=== PATIENT | male | born 1990 | race African-American/Black ===

== ENCOUNTER 2019-06-07 12:14 | Inpatient (IN) | payer MEDICAID, OTHER ==
[~2019-06-07] VITALS: Ht 182.9 cm; Wt 93.7 kg
[~2019-06-07 12:14] MED LIST: ALPR2TAB2; CARI250T; DIAZ10TA; NOR10T; PRO125RS; QUET100T38
[2019-06-07 13:03] LABS: Hematocrit 35.5 % (41.0-53.0); Hemoglobin 11.4 g/dL (13.5-17.5); Mean Corpuscular Hemoglobin 27.1 pg (28.0-32.0); Mean Corpuscular Hgb Conc. 32.2 g/dL (32.0-36.0); Mean Corpuscular Volume 84.1 fL (80.0-100.0); Platelet Count (auto) 448 10^3/uL (140-450); Red Blood Cells 4.22 10^6/uL (4.5-5.90); Red Cell Distribution Width 14.4 % (11.8-14.3); White Blood Cell 27.4 10^3/uL (4.4-10.8)
[2019-06-07 13:06] LABS: Basophils % (manual) 0 (0.0-2.0); Blast Cells 0; Eosinophils % (manual) 0 (0-7); Metamyelocytes % 0; Myelocytes % 0; Promyelocytes % 0; Reactive Lymphocytes 0
[2019-06-07 13:16] LABS: Calcium 8.9 mg/dL (8.5-10.1); Potassium 4.5 mmol/L (3.5-5.1)
[2019-06-07] MEDS ORDERED: ACETAMINOPHEN 325 MG TAB PO ONE ×2 (13:19→14:15)
[2019-06-07 13:21] LABS: Bilirubin, Total 0.5 mg/dL (0.2-1.0); Total Protein 8.2 g/dL (6.4-8.2)
[2019-06-07 13:22] LABS: Albumin 2.3 g/dL (3.4-5.0)
[2019-06-07 13:25] LABS: BUN/Creatinine Ratio 13.3
[2019-06-07 14:33] LABS: Band Neutrophils % (manual) 1
[2019-06-07 14:34] LABS: Lymphocytes % (manual) 10 (10.0-50.0); Monocytes % (manual) 3 (0-12)
[2019-06-07] MEDS ORDERED: ZINC SULFATE 220mg CAP or TAB PO ONE (15:00)
[2019-06-07] MEDS ORDERED: cefTRIAXone 1GM/50ML D5W 50 ML IV ONE (15:00)
[2019-06-07] MEDS ORDERED: ASCORBIC ACID 500 MG TAB PO ONE (15:00)
[2019-06-07] MEDS ORDERED: AZITHROMYCIN 500MG/ 250ML 250 ML IV ONE (15:00)
[2019-06-07] MEDS ORDERED: ACETAMINOPHEN 500 MG TAB PO PRN (17:15)
[2019-06-07] MEDS ORDERED: NITROGLYCERIN 0.4 MG SL TAB SL PRN (17:15)
[2019-06-07] MEDS ORDERED: MORPHINE SULF INJ 2 MG/ML SYRINGE 1ML IV PRN (17:15)
[2019-06-07 19:56] LABS: Basophils # (auto) 0.1 10 ^3/uL (0-0.2); Eosinophils # (auto) 0 10 ^3/uL (0-0.8); Eosinophils % (auto) 0.1 % (0.0-7.0); Lymphocytes # (auto) 1.5 10 ^3/uL (0.4-5.4)
[2019-06-07 19:58] LABS: Basophils % (auto) 0.3 % (0.0-2.0); Hematocrit 34.9 % (41.0-53.0); Hemoglobin 11.6 g/dL (13.5-17.5); Lymphocytes % (auto) 5.2 % (10.0-50.0); Mean Corpuscular Hemoglobin 27.4 pg (28.0-32.0); Mean Corpuscular Hgb Conc. 33.3 g/dL (32.0-36.0); Mean Corpuscular Volume 82.3 fL (80.0-100.0); Monocytes # (auto) 1.9 10 ^3/uL (0-1.3); Monocytes % (auto) 6.3 % (0.0-12.0); Neutrophils % (auto) 88.1 % (37.0-80.0); Platelet Count (auto) 483 10^3/uL (140-450); Red Blood Cells 4.24 10^6/uL (4.5-5.90); Red Cell Distribution Width 14.2 % (11.8-14.3); White Blood Cell 29.5 10^3/uL (4.4-10.8)
[2019-06-07 20:03] LABS: Albumin 2.2 g/dL (3.4-5.0); BUN/Creatinine Ratio 11.8; Calcium 8.6 mg/dL (8.5-10.1); Magnesium 2.1 mg/dL (1.6-2.6); Potassium 4.2 mmol/L (3.5-5.1)
[2019-06-07 20:06] LABS: Bilirubin, Total 0.5 mg/dL (0.2-1.0); Total Protein 7.6 g/dL (6.4-8.2)
[2019-06-07 22:00] VITALS: BP 137/77
[2019-06-08 05:00] VITALS: BP 112/66
[2019-06-08 06:16] LABS: Alcohol, Urine < 3.0 mg/dL (0-5); Amphetamine Screen, Urine POSITIVE (NEGATIVE); Barbiturate Scree,Urine NEGATIVE (NEGATIVE); Benzodiazephine Screen, Urine NEGATIVE (NEGATIVE); Cannabinoid Screen, Urine POSITIVE (NEGATIVE); Cocaine Screen, Urine NEGATIVE (NEGATIVE); Opiate Scree,Urine NEGATIVE (NEGATIVE); Phencyclidine Screen, Urine NEGATIVE (NEGATIVE)
[2019-06-08 06:19] LABS: Urine Bacteria NONE SEEN /hpf (None Seen); Urine Blood Negative /uL (Negative); Urine Specific Gravity 1.016 (1.001-1.035); Urine WBC 1 /hpf (0 - 3)
[2019-06-08 09:00] VITALS: BP 151/85
[2019-06-08] MEDS ORDERED: cefTRIAXone 1GM/50ML D5W 50 ML IV SCH (09:00)
[2019-06-08] MEDS: ZINC SULFATE 220mg CAP or TAB PO SCH (09:19)
[2019-06-08] MEDS: ASCORBIC ACID 500 MG TAB PO SCH (09:20)
[2019-06-08] MEDS: CHOLECALCIFEROL (VITD3) 1,000IU=25mCg TAB PO SCH (09:20)
[2019-06-08] MEDS: ENOXAPARIN SOD 40 MG/0.4 ML SYRINGE SC SCH (09:21)
[2019-06-08] MEDS ORDERED: PIPERACILLIN-TAZO 4.5GM 100 ML IV ONE (09:45)
[2019-06-08] MEDS ORDERED: AZITHROMYCIN 500MG/D5WorNS 250ml IV SCH (10:00)
[2019-06-08] MEDS: LINEZOLID 600MG/300ML 300 ML IV SCH ×2 (10:07→21:52)
[2019-06-08] MEDS: AZITHROMYCIN 250 MG TAB PO SCH (10:08)
[2019-06-08 13:00] VITALS: BP 130/72
[2019-06-08] MEDS: PIPERACILLIN-TAZO 4.5GM 100 ML IV SCH ×2 (13:59→21:52)
[2019-06-08 17:00] VITALS: BP 136/84
[2019-06-08 20:00] VITALS: BP 155/88
[2019-06-09] MEDS: HYDROcodone-ACET 10/325MG TAB PO PRN ×3 (02:55→21:08)
[2019-06-09] MEDS: PIPERACILLIN-TAZO 4.5GM 100 ML IV SCH ×3 (05:37→23:30)
[2019-06-09 09:00] VITALS: BP 125/76
[2019-06-09 09:50] LABS: Basophils # (auto) 0 10 ^3/uL (0-0.2); Eosinophils # (auto) 0.2 10 ^3/uL (0-0.8); Eosinophils % (auto) 1.8 % (0.0-7.0); Mean Corpuscular Volume 82.6 fL (80.0-100.0); Monocytes # (auto) 1.2 10 ^3/uL (0-1.3); Monocytes % (auto) 10.3 % (0.0-12.0)
[2019-06-09 09:56] LABS: Basophils % (auto) 0.4 % (0.0-2.0); Hematocrit 33.9 % (41.0-53.0); Hemoglobin 10.9 g/dL (13.5-17.5); Lymphocytes % (auto) 17.2 % (10.0-50.0); Mean Corpuscular Hemoglobin 26.5 pg (28.0-32.0); Mean Corpuscular Hgb Conc. 32.1 g/dL (32.0-36.0); Neutrophils # (auto) 8.2 10 ^3/uL (1.6-8.6); Neutrophils % (auto) 70.3 % (37.0-80.0); Platelet Count (auto) 585 10^3/uL (140-450); Red Blood Cells 4.11 10^6/uL (4.5-5.90); Red Cell Distribution Width 14.6 % (11.8-14.3); White Blood Cell 11.7 10^3/uL (4.4-10.8)
[2019-06-09 10:03] LABS: Calcium 8.5 mg/dL (8.5-10.1); Potassium 4.1 mmol/L (3.5-5.1)
[2019-06-09 10:04] LABS: Hepatitis B Surface Antibody Positive
[2019-06-09 10:05] LABS: BUN/Creatinine Ratio 12.3; Bilirubin, Total 0.3 mg/dL (0.2-1.0); Total Protein 7.5 g/dL (6.4-8.2)
[2019-06-09] MEDS: LINEZOLID 600MG/300ML 300 ML IV SCH ×2 (10:08→21:04)
[2019-06-09] MEDS: ZINC SULFATE 220mg CAP or TAB PO SCH (10:09)
[2019-06-09] MEDS: CHOLECALCIFEROL (VITD3) 1,000IU=25mCg TAB PO SCH (10:12)
[2019-06-09] MEDS: ASCORBIC ACID 500 MG TAB PO SCH (10:12)
[2019-06-09] MEDS: AZITHROMYCIN 250 MG TAB PO SCH (10:13)
[2019-06-09] MEDS: ENOXAPARIN SOD 40 MG/0.4 ML SYRINGE SC SCH (10:13)
[2019-06-09 10:14] LABS: CRP High Sensitivity 13.4 mg/dL (< 0.3)
[2019-06-09 10:29] LABS: Hepatitis A Total Antibody Positive
[2019-06-09 11:33] LABS: Hepatitis B Core Total AB Negative; Hepatitis B Surface Antigen Negative (Negative); Hepatitis C Antibody Negative (Negative)
[2019-06-09 13:00] VITALS: BP 132/83
[2019-06-09 17:00] VITALS: BP 130/77
[2019-06-09 21:00] VITALS: BP_SYST 124; BP_SYST 132; BP_DIAS 77; BP_DIAS 88
[2019-06-10 05:00] VITALS: BP 116/62
[2019-06-10] MEDS: PIPERACILLIN-TAZO 4.5GM 100 ML IV SCH ×3 (05:27→23:40)
[2019-06-10 09:00] VITALS: BP 128/80
[2019-06-10] MEDS: LINEZOLID 600MG/300ML 300 ML IV SCH ×2 (09:16→21:22)
[2019-06-10] MEDS: ASCORBIC ACID 500 MG TAB PO SCH (09:17)
[2019-06-10] MEDS: ZINC SULFATE 220mg CAP or TAB PO SCH (09:17)
[2019-06-10] MEDS: CHOLECALCIFEROL (VITD3) 1,000IU=25mCg TAB PO SCH (09:18)
[2019-06-10] MEDS: AZITHROMYCIN 250 MG TAB PO SCH (09:18)
[2019-06-10] MEDS: ENOXAPARIN SOD 40 MG/0.4 ML SYRINGE SC SCH (09:19)
[2019-06-10 13:00] VITALS: BP 110/72
[2019-06-10 17:00] VITALS: BP 119/70
[2019-06-10 17:36] LABS: Hemoglobin 11.5 g/dL (13.5-17.5); Nucleated Red Blood Cells % 0.1 %; Red Blood Cells 4.18 10^6/uL (4.5-5.90); White Blood Cell 6.8 10^3/uL (4.4-10.8)
[2019-06-10 17:38] LABS: Basophils # (auto) 0.1 10 ^3/uL (0-0.2); Basophils % (auto) 1.2 % (0.0-2.0); Eosinophils # (auto) 0.2 10 ^3/uL (0-0.8); Eosinophils % (auto) 2.7 % (0.0-7.0); Hematocrit 34.9 % (41.0-53.0); Lymphocytes # (auto) 2.1 10 ^3/uL (0.4-5.4); Lymphocytes % (auto) 30.7 % (10.0-50.0); Mean Corpuscular Hemoglobin 27.5 pg (28.0-32.0); Mean Corpuscular Hgb Conc. 32.9 g/dL (32.0-36.0); Mean Corpuscular Volume 83.5 fL (80.0-100.0); Monocytes # (auto) 0.8 10 ^3/uL (0-1.3); Monocytes % (auto) 11.1 % (0.0-12.0); Neutrophils # (auto) 3.7 10 ^3/uL (1.6-8.6); Neutrophils % (auto) 54.3 % (37.0-80.0); Platelet Count (auto) 588 10^3/uL (140-450); Red Cell Distribution Width 14.3 % (11.8-14.3)
[2019-06-10 17:53] LABS: Albumin 2.1 g/dL (3.4-5.0); BUN/Creatinine Ratio 9.5; Calcium 8.6 mg/dL (8.5-10.1); Magnesium 2.1 mg/dL (1.6-2.6)
[2019-06-10 17:56] LABS: Bilirubin, Total 0.2 mg/dL (0.2-1.0); Total Protein 7.5 g/dL (6.4-8.2)
[2019-06-10 21:45] VITALS: BP 128/72
[2019-06-11] MEDS: PIPERACILLIN-TAZO 4.5GM 100 ML IV SCH (05:28)
[2019-06-11 05:31] VITALS: BP 131/75
[2019-06-11 08:30] VITALS: BP 110/76
[2019-06-11 08:52] LABS: White Blood Cell 5.7 10^3/uL (4.4-10.8)
[2019-06-11 08:54] LABS: Hematocrit 34.6 % (41.0-53.0); Hemoglobin 11.5 g/dL (13.5-17.5); Mean Corpuscular Hemoglobin 27.7 pg (28.0-32.0); Mean Corpuscular Hgb Conc. 33.2 g/dL (32.0-36.0); Mean Corpuscular Volume 83.5 fL (80.0-100.0); Platelet Count (auto) 592 10^3/uL (140-450); Red Blood Cells 4.14 10^6/uL (4.5-5.90); Red Cell Distribution Width 14.2 % (11.8-14.3)
[2019-06-11 08:57] LABS: Band Neutrophils % (manual) 0; Basophils % (manual) 0 (0.0-2.0); Blast Cells 0; Myelocytes % 0; Promyelocytes % 0
[2019-06-11 09:05] LABS: Albumin 2.2 g/dL (3.4-5.0); Calcium 8.5 mg/dL (8.5-10.1); Magnesium 2.3 mg/dL (1.6-2.6)
[2019-06-11 09:11] LABS: BUN/Creatinine Ratio 10.6; Bilirubin, Total 0.2 mg/dL (0.2-1.0); Total Protein 7.6 g/dL (6.4-8.2)
[2019-06-11 09:17] LABS: Eosinophils % (manual) 1 (0-7); Lymphocytes % (manual) 36 (10.0-50.0); Metamyelocytes % 1; Monocytes % (manual) 8 (0-12); Reactive Lymphocytes 1
[2019-06-11] MEDS: ENOXAPARIN SOD 40 MG/0.4 ML SYRINGE SC SCH (10:00)
[2019-06-11] MEDS: ZINC SULFATE 220mg CAP or TAB PO SCH (10:15)
[2019-06-11] MEDS: CHOLECALCIFEROL (VITD3) 1,000IU=25mCg TAB PO SCH (10:15)
[2019-06-11] MEDS: ASCORBIC ACID 500 MG TAB PO SCH (10:16)
[2019-06-11] MEDS: AZITHROMYCIN 250 MG TAB PO SCH (10:16)
[2019-06-11] MEDS: LINEZOLID 600MG/300ML 300 ML IV SCH (10:17)
[2019-06-11 11:41] VITALS: BP 110/74
[2019-06-11 12:21] VITALS: BP 110/76
== END 2019-06-11 13:34 | disposition home or self-care (01) | DRG 720 ==
LOC: EDUNIT# 12:14 → ER 12:14 → TELE-EAST 12:15 → TELE-CENTR 06-09 23:00
PROVIDERS: ADMIT Nurse Practitioner Acute Care; ATTEND Internal Medicine
DX: A41.9 Sepsis, unspecified organism (principal); E43 Unspecified severe protein-calorie malnutrition; J18.9 Pneumonia, unspecified organism; F19.20 Other psychoactive substance dependence, uncomplicated; F17.210 Nicotine dependence, cigarettes, uncomplicated; J45.909 Unspecified asthma, uncomplicated; G40.909 Epilepsy, unspecified, not intractable, without status epilepticus; Z79.899 Other long term (current) drug therapy; Z03.818 Encounter for observation for suspected exposure to other biological agents ruled out; Z68.24 Body mass index [BMI] 24.0-24.9, adult
CPT/HCPCS: 36415; 71045; 71046; 80053; 80164; 80307; 81001; 82728; 83036; 83605; 83615; 83735; 84443; 84550; 85007; 85025; 85027; 85379; 85652; 86141; 86431; 86703; 86704; 86706; 86708; 86803; 87040; 87070; 87077; 87186; 87205; 87340; 87804; 87880; 96365; 96366; 96368; G0378; J0696; J2543

== ENCOUNTER 2019-08-25 02:46 | Emergency (ER) | payer MEDICAID ==
[~2019-08-25] VITALS: Ht 182.9 cm; Wt 81.6 kg
[2019-08-25 03:02] VITALS: BP 140/85
== END 2019-08-25 04:08 | disposition left against medical advice (07) ==
LOC: ER 02:50
DX: R50.9 Fever, unspecified (principal); Z53.21 Procedure and treatment not carried out due to patient leaving prior to being seen by health care provider

== ENCOUNTER 2021-01-28 13:10 | Emergency (ER) | payer MEDICAID ==
[~2021-01-28] VITALS: Ht 182.9 cm; Wt 112.5 kg
[2021-01-28 13:44] LABS: Urine WBC None Seen /hpf (0 - 3)
[2021-01-28 14:07] LABS: Urine Bacteria NONE SEEN /hpf (None Seen); Urine Blood Negative /uL (Negative); Urine Mucus FEW (None Seen); Urine Specific Gravity 1.024 (1.001-1.035)
[2021-01-28 14:16] LABS: Basophils # (auto) 0 10 ^3/uL (0-0.2); Basophils % (auto) 0.2 % (0.0-2.0); Eosinophils # (auto) 0 10 ^3/uL (0-0.8); Eosinophils % (auto) 0.1 % (0.0-7.0); Mean Corpuscular Volume 82.3 fL (80.0-100.0); Monocytes # (auto) 0.9 10 ^3/uL (0-1.3); Nucleated Red Blood Cells % 0.2 %
[2021-01-28 14:17] LABS: Hematocrit 36.9 % (41.0-53.0); Hemoglobin 12.3 g/dL (13.5-17.5); Lymphocytes # (auto) 1.4 10 ^3/uL (0.4-5.4); Lymphocytes % (auto) 25.6 % (10.0-50.0); Mean Corpuscular Hemoglobin 27.4 pg (28.0-32.0); Mean Corpuscular Hgb Conc. 33.2 g/dL (32.0-36.0); Monocytes % (auto) 17.1 % (0.0-12.0); Neutrophils # (auto) 3.1 10 ^3/uL (1.6-8.6); Red Blood Cells 4.48 10^6/uL (4.5-5.90); Red Cell Distribution Width 13.8 % (11.8-14.3); White Blood Cell 5.4 10^3/uL (4.4-10.8)
[2021-01-28 14:20] LABS: Amphetamine Screen, Urine NEGATIVE (NEGATIVE); Barbiturate Scree,Urine NEGATIVE (NEGATIVE); Benzodiazephine Screen, Urine NEGATIVE (NEGATIVE); Cannabinoid Screen, Urine POSITIVE (NEGATIVE); Cocaine Screen, Urine NEGATIVE (NEGATIVE); Opiate Scree,Urine NEGATIVE (NEGATIVE); Phencyclidine Screen, Urine NEGATIVE (NEGATIVE)
[2021-01-28 14:37] LABS: Calcium 9.3 mg/dL (8.5-10.1); Potassium 3.4 mmol/L (3.5-5.1); Salicylate < 1.7 mg/dL (2.8-20.0)
[2021-01-28 14:49] LABS: Bilirubin, Total 0.2 mg/dL (0.2-1.0); Total Protein 8.2 g/dL (6.4-8.2)
[2021-01-28 14:54] LABS: Acetaminophen < 2.0 ug/mL (10-30)
[2021-01-28] MEDS ORDERED: diphenhdrAMINE HCL 25 MG CAP PO ONE (17:30)
[2021-01-28] MEDS ORDERED: OLANZapine 5 MG TAB PO ONE (17:30)
[2021-01-28] MEDS ORDERED: diphenhdrAMINE HCL 50 MG/1 ML VL ONE (18:41)
[2021-01-28] MEDS ORDERED: HALOPERIDOL LACTATE 5 MG/ML INJ VIAL ONE (18:41)
[2021-01-28] MEDS ORDERED: LORazepam 2MG/ML-1ML VIAL ONE (18:42)
[2021-01-28] MEDS ORDERED: LORazepam 2MG/ML-1ML VIAL IM ONE (18:45)
[2021-01-28] MEDS ORDERED: diphenhdrAMINE HCL 50 MG/1 ML VL IM ONE (18:45)
[2021-01-28] MEDS ORDERED: HALOPERIDOL LACTATE 5 MG/ML INJ VIAL IM ONE (18:45)
[2021-01-30 07:25] VITALS: BP 144/89
== END 2021-01-30 09:37 | disposition home or self-care (01) ==
LOC: ER 13:10
DX: F29 Unspecified psychosis not due to a substance or known physiological condition (principal); F32.9 Major depressive disorder, single episode, unspecified; R07.89 Other chest pain; F17.210 Nicotine dependence, cigarettes, uncomplicated
CPT/HCPCS: 36415; 80053; 80307; 80320; 80329; 81001; 85025; 93005; 96372; 99285; J1200; J1630; J2060

== ENCOUNTER 2022-01-23 21:36 | Emergency (ER) | payer MEDICAID ==
[~2022-01-23] VITALS: Ht 182.9 cm; Wt 91.0 kg
[2022-01-23 23:28] VITALS: BP 133/90
[2022-01-24] MEDS ORDERED: IBUP800T27 PO (00:35)
[2022-01-24] MEDS ORDERED: CEPH-510 PO (01:03)
== END 2022-01-24 01:36 | disposition home or self-care (01) ==
LOC: ER 21:39
DX: S83.92XA Sprain of unspecified site of left knee, initial encounter (principal); F17.210 Nicotine dependence, cigarettes, uncomplicated; F12.10 Cannabis abuse, uncomplicated; W22.8XXA Striking against or struck by other objects, initial encounter; Y93.89 Activity, other specified; Y92.89 Other specified places as the place of occurrence of the external cause; Y99.8 Other external cause status
CPT/HCPCS: 29505; 73560

== ENCOUNTER 2023-01-26 23:25 | Inpatient (IN) | payer MEDICAID, OTHER ==
[~2023-01-26] VITALS: Ht 182.9 cm; Wt 94.6 kg
[~2023-01-26 23:25] MED LIST changes: +CEPH-510 PO; -DIAZ10TA; +DIAZ10TA66; +IBUP-1456 PO
[2023-01-27] VITALS: PULSE 94; RESP 32; O2SAT 83
[2023-01-27] MEDS ORDERED: NALOXONE HCL 1MG/ML 2ML SYRINGE IV ONE
[2023-01-27] MEDS ORDERED: LORazepam 2MG/ML-1ML VIAL IV ONE ×2 (00:15→00:30)
[2023-01-27] MEDS ORDERED: diphenhdrAMINE HCL 50 MG/1 ML VL IV ONE (00:30)
[2023-01-27] MEDS ORDERED: HALOPERIDOL LACTATE 5 MG/ML INJ VIAL IM ONE ×2 (00:30)
[2023-01-27 00:47] LABS: Basophils # (auto) 0.1 10 ^3/uL (0-0.2); Basophils % (auto) 0.4 % (0.0-2.0); Eosinophils # (auto) 0 10 ^3/uL (0-0.8); Eosinophils % (auto) 0.1 % (0.0-7.0); Hematocrit 45.2 % (41.0-53.0); Hemoglobin 14.5 g/dL (13.5-17.5); Lymphocytes # (auto) 1.9 10 ^3/uL (0.4-5.4); Lymphocytes % (auto) 12.4 % (10.0-50.0); Mean Corpuscular Hemoglobin 27.1 pg (28.0-32.0); Mean Corpuscular Volume 84.8 fL (80.0-100.0); Neutrophils # (auto) 11.9 10 ^3/uL (1.6-8.6); Neutrophils % (auto) 80.1 % (37.0-80.0); Nucleated Red Blood Cells % 0.3 %; Red Blood Cells 5.33 10^6/uL (4.5-5.90); Red Cell Distribution Width 14.9 % (11.8-14.3); White Blood Cell 14.9 10^3/uL (4.4-10.8)
[2023-01-27 01:00] LABS: INR 1.02 (0.9-1.15); Partial Thromboplastin Time 27.1 SEC (24.5-34.5); Prothrombin Time 10.7 sec (9.3-11.8)
[2023-01-27 01:01] LABS: Alanine Aminotransferase 37 U/L (7-40); Alkaline Phosphatase 54 U/L (46-116); Calcium 9.1 mg/dL (8.7-10.4); Carbon Dioxide 28 mmol/L (20-30); Chloride 103 mmol/L (98-107); Glucose 91 mg/dL (74-106)
[2023-01-27 01:02] LABS: Albumin 4.1 g/dL (3.2-4.8); Anion Gap 5 (5-15); Aspartate Aminotransferase 54 U/L (13-40); BUN/Creatinine Ratio 26.5 (10.0-20.0); Bilirubin, Total 0.5 mg/dL (0.2-1.0); Blood Urea Nitrogen 26 mg/dL (9-23); Potassium 4.5 mmol/L (3.5-5.1); Sodium 136 mmol/L (136-145); Total Protein 6.4 g/dL (5.7-8.2)
[2023-01-27 02:28] LABS: Amphetamine Screen, Urine Pos (NEGATIVE); Barbiturate Scree,Urine Neg (NEGATIVE); Benzodiazephine Screen, Urine Neg (NEGATIVE); Cocaine Screen, Urine Neg (NEGATIVE); Opiate Scree,Urine Neg (NEGATIVE)
[2023-01-27 02:29] LABS: Cannabinoid Screen, Urine Pos (NEGATIVE); Phencyclidine Screen, Urine Neg (NEGATIVE)
[2023-01-27 03:12] LABS: Urine Bacteria NONE SEEN /hpf (None Seen); Urine Blood Negative /uL (Negative); Urine Clarity Clear (Clear); Urine Color Yellow (Yellow); Urine Protein, UAD Negative (Negative); Urine Urobilinogen Normal (Negative); Urine WBC <1 /hpf (0 - 3)
[2023-01-27] MEDS ORDERED: VANCOMYCIN PER PHARMACY 0 MG IV SCH ×2 (04:15→09:00)
[2023-01-27] MEDS ORDERED: PIPERACILLIN-TAZOB 3.375GM 100 ML IV ONE (04:15)
[2023-01-27] MEDS ORDERED: IPRATROPIUM BROM 0.5 MG/2.5ML INH SOL NEB ONE (04:15)
[2023-01-27] MEDS ORDERED: ALBUTEROL MEDNEB 2.5 mg/3ml NEB NEB ONE (04:15)
[2023-01-27 04:47] LABS: Base Excess 2.5 mmol/L (-2.0-2.0)
[2023-01-27] MEDS ORDERED: VANCOMYCIN 1GM/250ML 250 ML IV SCH (05:00)
[2023-01-27] MEDS ORDERED: ACETAMINOPHEN 650 MG RECT SUPP PR ONE (05:00)
[2023-01-27 05:31] LABS: COVID19 ANTIGEN SOFIA FIA NEGATIVE (NEGATIVE)
[2023-01-27 05:32] LABS: Rapid Influenza A Negative (Negative); Rapid Influenza B Negative (Negative)
[2023-01-27 07:25] VITALS: RESP 29; O2SAT 100
[2023-01-27] MEDS ORDERED: SODIUM CHLORIDE 0.9% 1,000 ML IV SCH (09:00)
[2023-01-27] MEDS ORDERED: ALBUTEROL MEDNEB 2.5 mg/3ml NEB NEB PRN (09:00)
[2023-01-27] MEDS ORDERED: MORPHINE SULFATE INJ 2 MG/ml SYRG IV PRN (09:00)
[2023-01-27] MEDS ORDERED: NITROGLYCERIN 0.4 MG SL TAB SL PRN (09:00)
[2023-01-27] MEDS ORDERED: SODIUM CHLORIDE 0.9% 1,000 ML IV ONE (09:00)
[2023-01-27] MEDS ORDERED: ONDANSETRON HCL 4 MG/2 ML VIAL IV PRN (09:00)
[2023-01-27] MEDS ORDERED: ACETAMINOPHEN 325 MG TAB PO PRN (09:00)
[2023-01-27] MEDS ORDERED: PANTOPRAZOLE 40 MG/10 ML VIAL INJ IV ONE (09:30)
[2023-01-27] MEDS ORDERED: FUROSEMIDE 40 MG/4 ML VIAL IV ONE (09:45)
[2023-01-27] MEDS: ALBUTEROL MEDNEB 2.5 mg/3ml NEB NEB SCH ×2 (10:00→14:00)
[2023-01-27] MEDS ORDERED: IPRATROPIUM BROM 0.5 MG/2.5ML INH SOL NEB SCH (10:00)
[2023-01-27] MEDS: ENOXAPARIN SOD 40 MG/0.4 ML SYRINGE SC SCH (10:14)
[2023-01-27] MEDS: QUEtiapine FUMARATE 100 MG TAB PO SCH (10:18)
[2023-01-27 12:00] VITALS: BP 129/78; PULSE 118; RESP 20; O2SAT 96
[2023-01-27] MEDS ORDERED: PIPERACILLIN-TAZOB 3.375GM 100 ML IV SCH (12:00)
[2023-01-27 18:55] VITALS: O2SAT 100
[2023-01-27 19:20] VITALS: PULSE 99; RESP 18; O2SAT 100
[2023-01-27] MEDS: VANCOMYCIN 1GM/250ML 250 ML IV SCH (19:26)
[2023-01-27] MEDS: PIPERACILLIN-TAZOB 3.375GM 100 ML IV SCH (21:01)
[2023-01-28] MEDS: PIPERACILLIN-TAZOB 3.375GM 100 ML IV SCH ×4 (03:16→21:08)
[2023-01-28 06:08] LABS: Basophils # (auto) 0 10 ^3/uL (0-0.2); Basophils % (auto) 0.2 % (0.0-2.0); Eosinophils # (auto) 0.1 10 ^3/uL (0-0.8); Eosinophils % (auto) 0.9 % (0.0-7.0); Hematocrit 42.4 % (41.0-53.0); Hemoglobin 13.9 g/dL (13.5-17.5); Lymphocytes # (auto) 1.6 10 ^3/uL (0.4-5.4); Lymphocytes % (auto) 15.7 % (10.0-50.0); Mean Corpuscular Hemoglobin 27.7 pg (28.0-32.0); Mean Corpuscular Hgb Conc. 32.8 g/dL (32.0-36.0); Mean Corpuscular Volume 84.6 fL (80.0-100.0); Monocytes # (auto) 0.7 10 ^3/uL (0-1.3); Monocytes % (auto) 7.1 % (0.0-12.0); Neutrophils # (auto) 7.8 10 ^3/uL (1.6-8.6); Neutrophils % (auto) 76.1 % (37.0-80.0); Nucleated Red Blood Cells % 0.2 %; Red Blood Cells 5.01 10^6/uL (4.5-5.90); Red Cell Distribution Width 14.7 % (11.8-14.3); White Blood Cell 10.3 10^3/uL (4.4-10.8)
[2023-01-28] MEDS: VANCOMYCIN 1GM/250ML 250 ML IV SCH ×2 (06:17→18:01)
[2023-01-28 06:26] LABS: Alanine Aminotransferase 28 U/L (7-40); Alkaline Phosphatase 51 U/L (46-116); Anion Gap 5 (5-15); Aspartate Aminotransferase 33 U/L (13-40); BUN/Creatinine Ratio 16.9 (10.0-20.0); Bilirubin, Total 0.7 mg/dL (0.2-1.0); Blood Urea Nitrogen 21 mg/dL (9-23); Calcium 9.1 mg/dL (8.5-10.1); Carbon Dioxide 29 mmol/L (20-30); Chloride 104 mmol/L (98-107); Glucose 109 mg/dL (74-106); Potassium 4.1 mmol/L (3.5-5.1); Sodium 138 mmol/L (136-145); Total Protein 6.5 g/dL (5.7-8.2)
[2023-01-28 09:55] VITALS: O2SAT 98
[2023-01-28] MEDS: PANTOPRAZOLE 40 MG/10 ML VIAL INJ IV SCH (10:00)
[2023-01-28] MEDS: ENOXAPARIN SOD 40 MG/0.4 ML SYRINGE SC SCH (10:00)
[2023-01-28] MEDS: QUEtiapine FUMARATE 100 MG TAB PO SCH (10:00)
[2023-01-28 10:37] VITALS: PULSE 92; RESP 16; O2SAT 95
[2023-01-28 22:57] VITALS: PULSE 90; RESP 20; O2SAT 92
[2023-01-29] MEDS: VANCOMYCIN 1GM/250ML 250 ML IV SCH ×3 (04:02→18:00)
[2023-01-29] MEDS: PIPERACILLIN-TAZOB 3.375GM 100 ML IV SCH ×4 (06:05→21:52)
[2023-01-29 09:28] VITALS: O2SAT 100
[2023-01-29] MEDS: ENOXAPARIN SOD 40 MG/0.4 ML SYRINGE SC SCH (09:42)
[2023-01-29] MEDS: QUEtiapine FUMARATE 100 MG TAB PO SCH (09:42)
[2023-01-29] MEDS: PANTOPRAZOLE 40 MG/10 ML VIAL INJ IV SCH (09:42)
[2023-01-29] MEDS: METOPROLOL TARTRATE 25 MG TAB PO SCH ×2 (10:04→22:09)
[2023-01-29] MEDS: SACUBITRIL-VALSARTAN 24mg/26mg TAB PO SCH ×2 (10:18→22:09)
[2023-01-29 23:04] VITALS: BP 130/79; PULSE 77; RESP 20; TEMP 98.1; O2SAT 98
[2023-01-29 23:31] VITALS: O2SAT 96
[2023-01-30] MEDS: VANCOMYCIN 1GM/250ML 250 ML IV SCH ×2 (01:35→12:05)
[2023-01-30] MEDS: PIPERACILLIN-TAZOB 3.375GM 100 ML IV SCH ×3 (03:18→14:30)
[2023-01-30 05:33] LABS: Anion Gap 6 (5-15); Carbon Dioxide 26 mmol/L (20-30); Chloride 106 mmol/L (98-107); Sodium 138 mmol/L (136-145)
[2023-01-30 05:34] LABS: Calcium 8.7 mg/dL (8.7-10.4)
[2023-01-30 05:35] LABS: Hemoglobin 13.2 g/dL (13.5-17.5)
[2023-01-30 05:38] LABS: Glucose 108 mg/dL (74-106)
[2023-01-30 05:39] LABS: BUN/Creatinine Ratio 13.6 (10.0-20.0); Blood Urea Nitrogen 12 mg/dL (9-23); Hematocrit 40.2 % (41.0-53.0); Mean Corpuscular Hemoglobin 27.6 pg (28.0-32.0); Mean Corpuscular Hgb Conc. 32.7 g/dL (32.0-36.0); Mean Corpuscular Volume 84.5 fL (80.0-100.0); Red Blood Cells 4.76 10^6/uL (4.5-5.90); Red Cell Distribution Width 14.6 % (11.8-14.3); White Blood Cell 9.3 10^3/uL (4.4-10.8)
[2023-01-30 05:50] LABS: Basophils % (manual) 0 (0.0-2.0); Blast Cells 0; Myelocytes % 0; Promyelocytes % 0; Reactive Lymphocytes 0
[2023-01-30 06:53] LABS: Band Neutrophils % (manual) 3; Eosinophils % (manual) 2 (0-7); Lymphocytes % (manual) 23 (10.0-50.0); Metamyelocytes % 2; Monocytes % (manual) 11 (0-12); Platelet Estimate Adequate
[2023-01-30 08:00] VITALS: PULSE 88; RESP 18; O2SAT 96
[2023-01-30 09:06] VITALS: BP_SYST 102; BP_SYST 119; BP_DIAS 57; BP_DIAS 78; PULSE 76; PULSE 80; RESP 18; RESP 19; TEMP 97.8; TEMP 98.1; O2SAT 92; O2SAT 96
[2023-01-30] MEDS: ENOXAPARIN SOD 40 MG/0.4 ML SYRINGE SC SCH (09:16)
[2023-01-30] MEDS: QUEtiapine FUMARATE 100 MG TAB PO SCH (09:17)
[2023-01-30] MEDS: SACUBITRIL-VALSARTAN 24mg/26mg TAB PO SCH (09:17)
[2023-01-30] MEDS: METOPROLOL TARTRATE 25 MG TAB PO SCH (09:17)
[2023-01-30 10:13] VITALS: O2SAT 98
[2023-01-30] MEDS ORDERED: LEVO500T91 PO (10:50)
[2023-01-30] MEDS ORDERED: SACU1TAB PO (10:50)
[2023-01-30] MEDS ORDERED: ALBUAER3 IN (10:50)
[2023-01-30] MEDS ORDERED: METO25TA5 PO (10:50)
[2023-01-30 11:23] VITALS: BP 119/78; PULSE 80; RESP 19; TEMP 98.1; O2SAT 96
[2023-01-30 11:57] VITALS: BP 111/73; PULSE 87; RESP 19; O2SAT 98
[2023-01-30] MEDS: PANTOPRAZOLE 40 MG/10 ML VIAL INJ IV SCH (12:05)
[2023-01-30 13:17] VITALS: BP 111/73; PULSE 87; RESP 19; TEMP 97.7; O2SAT 98
== END 2023-01-30 15:45 | disposition home or self-care (01) | DRG 720 ==
LOC: ER 23:25 → TELE 01-27 08:58 → TELE-EAST 01-29 21:55 → EAST 01-30 01:09
PROVIDERS: ADMIT Nurse Practitioner Family; ATTEND Family Medicine
DX: A41.9 Sepsis, unspecified organism (principal); J96.01 Acute respiratory failure with hypoxia; J69.0 Pneumonitis due to inhalation of food and vomit; R65.21 Severe sepsis with septic shock; T43.651A Poisoning by methamphetamines accidental (unintentional), initial encounter; I21.A1 Myocardial infarction type 2; R79.89 Other specified abnormal findings of blood chemistry; Z20.822 Contact with and (suspected) exposure to COVID-19; F15.90 Other stimulant use, unspecified, uncomplicated; F32.A Depression, unspecified; F19.10 Other psychoactive substance abuse, uncomplicated; F17.210 Nicotine dependence, cigarettes, uncomplicated; I50.22 Chronic systolic (congestive) heart failure; J45.909 Unspecified asthma, uncomplicated; T40.411A Poisoning by fentanyl or fentanyl analogs, accidental (unintentional), initial encounter; Z56.0 Unemployment, unspecified; Y92.89 Other specified places as the place of occurrence of the external cause
CPT/HCPCS: 36415; 36600; 71045; 80048; 80053; 80202; 80307; 81001; 82565; 82805; 83605; 83880; 84484; 85007; 85025; 85027; 85610; 85730; 87040; 87426; 87804; 93005; 93306; 96365; 96366; 96367; 96372; 96375; 96376; 99291; C9113; G0378; J2543